=== PATIENT | female | born 1995 | race Caucasian/White ===

== ENCOUNTER 2017-12-31 23:15 | Emergency (ER) | payer BC, OTHER ==
[~2017-12-31] VITALS: Ht 162.6 cm; Wt 49.9 kg
[~2017-12-31 23:15] MED LIST: ETON68IM SQ
--- NOTE | 2017-12-31 23:19 | ER Report ---
History and Physical Time Seen By MD: 23:17 HPI/ROS CHIEF COMPLAINT: High fever HISTORY OF PRESENT ILLNESS: 22-year-old female presents ambulatory to the ER complaining of fever for several days. She was seen at urgent care 2 days ago and started on Z-Drew. She states she had a negative rapid strep. She had strep pharyngitis. A urine ago and was prescribed clindamycin and she unfortunately developed C. difficile. Patient denies productive cough. Patient denies dysuria, frequency or hematuria. Patient notes a mild headache. She denies photophobia or stiff neck. Patient states she is prone to tonsillitis. REVIEW OF SYSTEMS: Respiratory: No cough, no dyspnea. Cardiovascular: No chest pain, no palpitations. Gastrointestinal: No vomiting, no abdominal pain. Musculoskeletal: No back pain. Allergies: Coded Allergies: No Known Drug Allergies (Unverified , 12/31/17) Home Meds Reported Medications Etonogestrel/Ethinyl Estradiol (NUVARING VAGINAL RING) 1 Each Vag.ring, 1 EACH VG, VAG.RING 12/31/17 Discontinued Reported Medications Etonogestrel (NEXPLANON) 68 Mg Implant, 68 MG SQ 12/14/13 Hx Smoking: No Exposure to Second Hand Smoke?: No Hx Substance Use Disorder: No Hx Alcohol Use: No Constitutional Vital Sign - Last 24 Hours 12/31/17 12/31/17 12/31/17 12/31/17 23:20 23:22 23:30 23:45 Temp 101.1 Pulse 116 117 117 Resp 18 B/P (MAP) 142/106 142/106 (118) Pulse Ox 95 98 95 O2 Delivery Room Air 01/01/18 01/01/18 00:00 00:15 Pulse 111 111 Pulse Ox 95 94 Physical Exam General Appearance: The patient is alert, has no immediate need for airway protection and no current signs of toxicity. Fever 101.7 HEENT: Pupils equal and round no injection. TMs normal, oropharynx with moderate erythema, tonsillar hypertrophy and exudate Respiratory: Chest is non tender, lungs are clear to auscultation. No wheezing or rails Cardiac: regular rate and rhythm Gastrointestinal: Abdomen is soft and non tender, no masses, bowel sounds normal. No CVA tenderness Musculoskeletal: Neck: Neck is supple and non tender. No meningismus, positive tender lymphadenopathy Extremities have full range of motion and are non tender. Skin: No rashes or lesions. DIFFERENTIAL DIAGNOSIS: After history and physical exam differential diagnosis was considered for adult fever including but not limited to viral syndromes including influenza, urinary tract infection, tonsillitis, mononucleosis, pneumonia and sepsis. Medical Decision Making Data Points Laboratory Hematology Test 12/31/17 23:30 Monoscreen Negative (NEGATIVE) Influenza Virus Type A (PCR) Negative (NEGATIVE) Influenza Virus Type B (PCR) Negative (NEGATIVE) Group A Streptococcus Screen Negative (NEGATIVE) Chemistry Test 12/31/17 23:30 Monoscreen Negative (NEGATIVE) Influenza Virus Type A (PCR) Negative (NEGATIVE) Influenza Virus Type B (PCR) Negative (NEGATIVE) Group A Streptococcus Screen Negative (NEGATIVE) ED Course/Re-evaluation ED Course Patient was admitted to an examination room. H&P was done. The differential diagnoses was considered. On clinical examination. Patient has a high fever. She's had exudative tonsillitis. She had a rapid strep that was negative. But was placed on Zithromax. Patient reports no improvement. She's been having high fevers. She's not been eating or drinking. She states her last ibuprofen was reported milligrams at 6 PM. Patient reports fever to 104.7 at home. Patient may have influenza. A rapid influenza was performed which is negative. She may have mononucleosis. A Monospot was negative. A repeat rapid strep was performed which is negative. Patient's advised to continue on her Zithromax. She is advised alternating ibuprofen and Tylenol every 4 hours and increase her fluid intake, especially popsicles. Decision to Disposition Date: Jan 01, 2018 Decision to Disposition Time: 00:17 Depart Departure Latest Vital Signs Vital Signs Date Time Temp Pulse Resp B/P (MAP) Pulse Ox O2 Delivery O2 Flow Rate FiO2 01/01/18 00:15 111 94 12/31/17 23:22 142/106 (118) 12/31/17 23:20 101.1 18 Room Air Impression: Primary Impression: Fever Additional Impression: Tonsillitis Condition: Improved Disposition: HOME OR SELF-CARE Referrals: ANDRÉS LEWIS MD Patient Instructions: Fever in Adults (ED), Tonsillitis (ED) Additional Instructions: Alternate ibuprofen 800 mg and Tylenol 1000 mg every 4 hours Use numbing throat lozengers such as Chloraseptic, Sucrets or Cepastat Drink plenty of fluids, eat popsicles to bring her fever down and to provide glucose, electrolytes and fluids Follow-up with your primary care if unimproved in 3-5 days. Problem Qualifiers Primary Impression: Fever Fever type: unspecified Qualified Codes: R50.9 - Fever, unspecified HERBIE BROCK DO Dec 31, 2017 23:19
[2017-12-31 23:22] VITALS: BP 142/106
[2017-12-31] MEDS ORDERED: ETON1VAG7 VG (23:26)
[2017-12-31] MEDS ORDERED: ACETAMINOPHEN 500 MG TAB PO ONE (23:30)
== END 2018-01-01 00:29 | disposition home or self-care (01) ==
LOC: ER 23:30
DX: J03.90 Acute tonsillitis, unspecified (principal)
CPT/HCPCS: 36415; 86308; 87081; 87502; 87880; 99283

== ENCOUNTER 2019-03-05 23:32 | Emergency (ER) | payer BC ==
[~2019-03-05 23:32] MED LIST changes: +ETON1VAG7 VG
[2019-03-05] MEDS ORDERED: FAMOTIDINE(*) 20MG/50ML PREMIX 0 ML IVPB ONE (23:44)
[2019-03-05] MEDS ORDERED: FAMOTIDINE(*) 20MG/50ML PREMIX 50 ML IVPB ONE (23:50)
[2019-03-05] MEDS ORDERED: NS(*) 0.9% 1000 ML BAG 1,000 ML IV ONE (23:50)
[2019-03-05] MEDS ORDERED: methylPREDNIS SUCC 125 MG/2ML IVP ONE (23:50)
--- NOTE | 2019-03-06 00:01 | ER Report ---
History and Physical Time Seen By MD: 23:41 Hx. of Stated Complaint: ate something she's allergic to. possibly quinuos. tongue started to feel funny and swell. took 75mg of benadryl about 90mins ago. still feeling off. no sob or hives HPI/ROS CHIEF COMPLAINT: Allergic reaction to food HISTORY OF PRESENT ILLNESS: This is a 23 year old female. Was eating tonight and started to feel her tongue swelling. Difficulty swallowing and breathing. Thinks it was the quinoa tonight. Took 75mg oral benadryl and tongue swelling is gone, but still with feeling of trouble swallowing. Some dizziness as well. No rash. Allergies: Coded Allergies: No Known Drug Allergies (Unverified , 03/05/19) Home Meds Discontinued Reported Medications Etonogestrel/Ethinyl Estradiol (NUVARING VAGINAL RING) 1 Each Vag.ring, 1 EACH VG, VAG.RING 12/31/17 Reviewed Nurses Notes: Yes Hx Smoking: No Exposure to Second Hand Smoke?: No Hx Substance Use Disorder: No Hx Alcohol Use: No Constitutional Vital Sign - Last 24 Hours 03/05/19 03/05/19 03/05/19 03/05/19 23:32 23:35 23:36 23:47 Temp 98.2 Pulse ??? 69 70 Resp 12 16 B/P (MAP) 151/86 115/86 (96) Pulse Ox 98 100 O2 Delivery Room Air 03/06/19 03/06/19 03/06/19 03/06/19 00:00 00:02 00:30 00:32 Pulse 65 64 Resp 13 18 B/P (MAP) 116/77 (90) 109/84 (92) Pulse Ox 85 Intake and Output 03/05/19 03/05/19 03/06/19 15:00 23:00 07:00 Intake Total 1050 ml Balance 1050 ml Physical Exam General Appearance: Alert, no distress but a little anxious. Eyes: Pupils equal and round no injection. ENT: Normal oral mucosa. Moist mucous membranes. No swelling of tongue, lips, throat visible. Neck: Neck is supple and non tender. Respiratory: Chest is non tender, lungs are clear to auscultation. Cardiac: regular rate and rhythm Neuro: no focal deficits. Skin: No rashes or lesions. DIFFERENTIAL DIAGNOSIS: After history and physical exam differential diagnosis was considered for allergic reaction. Medical Decision Making ED Course/Re-evaluation Clinical Indication for ER IV: Hydration, IV Access ED Course IV started with 1000cc normal saline, 125mg IV Solu-Medrol, and 20mg IV Pepcid. Observed and improved. Home with Prednisone and as needed Benadryl over the next 48 hours. Decision to Disposition Date: March 06, 2019 Decision to Disposition Time: 00:06 Depart Departure Latest Vital Signs Vital Signs Date Time Temp Pulse Resp B/P (MAP) Pulse Ox O2 Delivery O2 Flow Rate FiO2 03/06/19 00:32 64 18 03/06/19 00:30 109/84 (92) 03/06/19 00:02 85 03/05/19 23:35 98.2 Room Air Impression: Primary Impression: Allergic reaction Condition: Improved Disposition: HOME OR SELF-CARE Patient Instructions: General Allergic Reaction (ED) Additional Instructions: Rest and increase fluid intake. Take Prednisone 20mg tablets, 2 tablets tonight and 2 more tablets tomorrow night. Benadryl 25mg, take 1-2 every 6 hours as needed for any allergy symptoms. Problem Qualifiers Primary Impression: Allergic reaction Encounter type: initial encounter Qualified Codes: T78.40XA - Allergy, unspecified, initial encounter SIRISHA WOODS MD March 06, 2019 00:01
[2019-03-06] MEDS ORDERED: DILT180C2 PO (00:10)
[2019-03-06 00:30] VITALS: BP 109/84
[2019-03-06] MEDS ORDERED: predniSONE 20 MG TAB PO ONE (00:35)
== END 2019-03-06 00:44 | disposition home or self-care (01) ==
LOC: ER 23:50
DX: T78.1XXA Other adverse food reactions, not elsewhere classified, initial encounter (principal)
CPT/HCPCS: 96374; 99284; J2930; J7030; J7512